=== PATIENT | female | born 1975 | race Caucasian/White ===

== ENCOUNTER → 2016-12-09 | Outpatient (CLI) | payer BC ==
[2016-12-09 11:09] LABS: Basophils % (A) 1 %; CH 30.6; CHCM 34.2; Eosinophils # (A) 0.2 k/uL (0-0.7); Eosinophils % (A) 3 %; HCT 41.7 % (34.0-46.0); HDW 2.48; HGB 14.1 gm/dL (11.4-16.0); Luc # (Auto) 0.13; Luc % (Auto) 2; Lymphocytes # (A) 1.8 k/uL (1.0-4.8); Lymphocytes % (A) 31 %; MCH 30.3 pg (25.0-35.0); MCHC 33.8 g/dL (31.0-37.0); MCV 89.7 fL (80.0-100.0); Mean Platelet Volume 6.2; Monocytes # (A) 0.3 k/uL (0-1.0); Monocytes % (A) 6 %; Neutrophils # (A) 3.3 k/uL (1.3-7.7); Neutrophils % (A) 57 %; RBC 4.64 m/uL (3.80-5.40); RDW 12.3 % (11.5-15.5); WBC 5.7 k/uL (3.8-10.6); WBC (Perox) 5.73
[2016-12-09 13:15] LABS: ALT 73 U/L (9-52); AST 40 U/L (14-36); Alkaline Phosphatase 72 U/L (38-126); Anion Gap 10 mmol/L; Blood Urea Nitrogen 14 mg/dL (7-17); Calcium 9.8 mg/dL (8.4-10.2); Carbon Dioxide 26 mmol/L (22-30); Chloride 105 mmol/L (98-107); Cholesterol 199 mg/dL (<200); Glucose 85 mg/dL (74-99); HDL Cholesterol 42 mg/dL (40-60); Non-African American GFR(MDRD) >60 (>60 ml/min/1.73 sqM); Potassium 4.7 mmol/L (3.5-5.1); Sodium 141 mmol/L (137-145); Total Bilirubin 0.3 mg/dL (0.2-1.3); Total Protein 7.1 g/dL (6.3-8.2); Triglycerides 285 mg/dL (<150)
[2016-12-09 13:32] LABS: Follicle Stimulating Hormone 5.6 mIU/mL
== END | disposition home or self-care (01) ==
LOC: LABWHC1 09:59
PROVIDERS: ATTEND Nurse Practitioner Adult Health
DX: Z00.00 Encounter for general adult medical examination without abnormal findings (principal); N92.0 Excessive and frequent menstruation with regular cycle
CPT/HCPCS: 36415; 80053; 80061; 82672; 83001; 83002; 84439; 84443; 85025

== ENCOUNTER → 2019-01-04 | Outpatient (CLI) | payer BC ==
[2019-01-04 12:28] LABS: Basophils # (A) 0.1 k/uL (0-0.2); Basophils % (A) 1 %; Eosinophils # (A) 0.1 k/uL (0-0.7); Eosinophils % (A) 2 %; HCT 45.2 % (34.0-46.0); HGB 14.6 gm/dL (11.4-16.0); Lymphocytes # (A) 1.9 k/uL (1.0-4.8); Lymphocytes % (A) 27 %; MCH 28.9 pg (25.0-35.0); MCHC 32.4 g/dL (31.0-37.0); MCV 89.3 fL (80.0-100.0); Mean Platelet Volume 6.3; Monocytes # (A) 0.4 k/uL (0-1.0); Monocytes % (A) 5 %; Neutrophils # (A) 4.7 k/uL (1.3-7.7); Neutrophils % (A) 64 %; Platelet Count 325 k/uL (150-450); RBC 5.06 m/uL (3.80-5.40); RDW 12.6 % (11.5-15.5); WBC 7.3 k/uL (3.8-10.6)
[2019-01-04 17:43] LABS: Albumin 4.4 g/dL (3.80-4.90); Albumin/Globulin Ratio 1.91 (1.60-3.17); Anion Gap 7.1 mmol/L (4.00-12.00); Calcium 9.6 mg/dL (8.7-10.3); Carbon Dioxide 23.9 mmol/L (21.6-31.8); Globulin 2.3 g/dL (1.6-3.3); LDL Cholesterol,Calculated 146.2 mg/dL (0.0-131.0); Potassium 4.5 mmol/L (3.5-5.5); Total Bilirubin 0.5 mg/dL (0.3-1.2); Total Protein 6.7 g/dL (6.2-8.2); VLDL Calculation 28.8 mg/dL (5.00-40.00)
== END ==
LOC: LABWHC1 11:08
PROVIDERS: ATTEND Family Medicine
DX: Z00.00 Encounter for general adult medical examination without abnormal findings (principal)
CPT/HCPCS: 36415; 80053; 80061; 84443; 85025

== ENCOUNTER → 2019-06-01 | Outpatient (CLI) | payer BC ==
--- NOTE | 2019-06-01 13:59 | MM ---
Reason for exam: screening (asymptomatic). Baseline mammogram. Physical Findings: Nurse did not find any significant physical abnormalities on exam. MG 3D Screening Mammo W/Cad Bilateral CC and MLO view(s) were taken. The breast tissue is heterogeneously dense. This may lower the sensitivity of mammography. Finding: There is a 20-25 mm indistinct oval mass in the upper outer quadrant, posterior position of the left breast. These results were verbally communicated with the patient and result sheet given to the patient on 06/01/19. ASSESSMENT: Incomplete: need additional imaging evaluation, BI-RAD 0 RECOMMENDATION: Ultrasound of the left breast.
--- NOTE | 2019-06-01 14:01 | USB ---
Reason for exam: additional evaluation requested from abnormal screening. Physical Findings: Breast exam preformed at baseline screening. US Breast Workup Limited LT Left limited breast ultrasound including focal area of concern, retroareolar and axilla demonstrates a 1.8 x 1.3 x 1.3cm oval, hypoechoic lesion at 2 o'clock for which a biopsy is recommended and a 2.3 x 1.8 x 1.1cm oval node at the axilla. These results were verbally communicated with the patient and result sheet given to the patient on 06/01/19. ASSESSMENT: Suspicious, BI-RAD 4 RECOMMENDATION: Ultrasound core biopsy of the left breast. Called Dr. Diaz with mammographic findings and has scheduled an appointment for the patient for 06/23/19 at 10:[address] Meza. Biopsy scheduled for 06/26/19 at 12:20. PRELIMINARY REPORT CALLED AND FAXED TO DR. MEZA ON 06/01/19.
== END | disposition home or self-care (01) ==
LOC: RADMAMWWP 11:03
PROVIDERS: ATTEND Family Medicine
DX: Z12.31 Encounter for screening mammogram for malignant neoplasm of breast (principal); R92.8 Other abnormal and inconclusive findings on diagnostic imaging of breast
CPT/HCPCS: 77063; 77067

== ENCOUNTER → 2019-06-23 | Outpatient (CLI) | payer BC ==
[2019-06-23 10:27] VITALS: BP 125/85; PULSE 82; RESP 18; TEMP 98; BMI 28.3
--- NOTE | 2019-06-23 10:51 | P.GSHP ---
History of Present Illness H&P Date: 06/23/19 Chief Complaint: Abnormal ultrasound left breast Lea is a 43 year old white female who is status post a bilateral mammogram on 06/01/2019. This revealed an indistinct oval mass in the upper outer quadrant of the left breast for which ultrasound was recommended. An ultrasound was performed on . This revealed a 1.8-1.3 cm hypoechoic lesion at 2:00 for which biopsy was recommended and a 2.3 x 1.8 cm oval node in the axilla. This was a routine screening mammogram. Is the first on the patient has had. She does not feel anything in her breast. She has no nipple discharge or skin changes of concern. She complains of discomfort in her breast bilaterally the week before her period. Her periods are regular. Her breasts become engorged prior to beginning menstruation but the discomfort goes away after she starts menstruation. She drinks approximately one cup of coffee per day. The patient does not smoke and she is not exposed to secondhand smoke. She does not eat chocolate regularly. Does not take any hormones. Family History: Maternal great-grandmother: Breast cancer at 80 maternal uncle: stomach Hormonal history: Menarche:13 , first at 18, breast fed: no periods regular, LMP May. BCP: in past foe < 1 year hormones: none Past surgical history: 1. 2 C-sections 2. Appendectomy Past medical history: one Social History: smoke: none drink: none drugs: none - Constitutional Constitutional: Reports sweats - EENT Eyes: denies blurred vision, denies pain Ears: deny: decreased hearing, tinnitus Ears, nose, mouth and throat: Denies headache, Denies sore throat - Breasts Breasts: bilateral: as per HPI - Cardiovascular Cardiovascular: Denies chest pain, Denies shortness of breath - Respiratory Respiratory: Denies cough, Denies 7 - Gastrointestinal Gastrointestinal: Denies abdominal pain, Denies diarrhea, Denies nausea, Denies vomiting - Genitourinary (Female) Genitourinary: Denies dysuria, Denies hematuria - Menstruation Menstruation: Reports period normal - Musculoskeletal Musculoskeletal: Denies myalgias - Integumentary Integumentary: Denies pruritus, Denies rash - Neurological Neurological: Denies numbness, Denies weakness - Psychiatric Psychiatric: Reports anxiety, Reports depression - Endocrine Comment: gain weight Endocrine: Reports fatigue, Reports weight change - Hematologic/Lymphatic Comment: none - Allergic/Immunologic Allergic/Immunologic: Reports seasonal allergies Past Medical History Past Medical History: No Reported History History of Any Multi-Drug Resistant Organisms: None Reported Past Surgical History: Appendectomy, Section Additional Past Surgical History / Comment(s): section x2 08/1993 and 06/2008; appendectomy approx: 1988; Past Anesthesia/Blood Transfusion Reactions: No Reported Reaction Past Psychological History: No Psychological Hx Reported Smoking Status: Never smoker Past Alcohol Use History: None Reported Past Drug Use History: None Reported Medications and Allergies Home Medications Medication Instructions Recorded Confirmed Type Desvenlafaxine Succinate [Pristiq] 50 mg PO QAM 06/12/19 06/23/19 History Allergies Allergy/AdvReac Type Severity Reaction Status Date / Time No Known Allergies Allergy Verified 06/23/19 10:23 Surgical - Exam Vital Signs Temp Pulse Resp BP Pulse Ox 98.0 F 82 18 125/85 97 06/23/19 10:24 06/23/19 10:24 06/23/19 10:24 06/23/19 10:24 06/23/19 10:24 BMI 28.3 - General well developed, well nourished, no distress - Eyes normal ocular movement - ENT no hearing loss, no congestion - Neck no masses, trachea midline - Respiratory normal respiratory effort, clear to auscultation - Cardiovascular Rhythm: regular Heart Sounds: normal: S1, S2 - Abdomen Abdomen: soft, non tender, no guarding, no rigid, no rebound - Integumentary normal turgor - Neurologic no disoriented, no combative - Musculoskeletal normal gait, normal posture - Psychiatric oriented to time, oriented to person, oriented to place, speech is normal, memory intact breast exam: Right breast: Dense breast multiple positional exam fibrocystic changes no domin ant masses or nodules of concern Right axilla: No adenopathy of concern Left breast: Dense breast multiple positional exam fibrocystic changes no dominant masses or nodules of concern Left axilla: No adenopathy of concern bra: 38 C Results Mammogram and ultrasound reports and radiographs reviewed Assessment and Plan Assessment: Impression: 1. Abnormal mammogram left breast 2. Abnormal ultrasound left breast and axilla 3. Fibrocystic breast changes 4. Family history of cancer 5. anxiety/depression Risks and benefits of the procedure were discussed with the patient. Additionally we discussed the fact that there is a axillary lymph node. Ultrasound has been reviewed with radiology Dr. Ashley and the node is 4 mm cortex therefore we are going to do biopsy of both the breast lesion and the lesion in the axilla. The patient understands that this is scheduled for the near future. Plan: 1. Ultrasound core biopsy left breast ultrasound abnormality 2. Ultrasound core biopsy left axillary lesion 3. Follow-up 1 week after biopsies Management medical conditions Cc: Dr. Ranjith Diaz
== END ==
LOC: WWCWWP 10:09
PROVIDERS: ATTEND Surgery
DX: Z53.9 Procedure and treatment not carried out, unspecified reason (principal)

== ENCOUNTER → 2019-06-26 | Day surgery (SDC) | payer BC ==
[2019-06-26 11:39] VITALS: RESP 16; BMI 28.3
[2019-06-26 13:21] VITALS: BP 138/88; PULSE 81; TEMP 97.7
--- NOTE | 2019-06-26 13:47 | USB ---
EXAMINATION TYPE: US biopsy breast VAD LT, MG diagnostic mammo LT wo CAD DATE OF EXAM: 06/26/2019 CLINICAL HISTORY: R92.8 ABN MAMMO. TECHNIQUE: Ultrasound guided core biopsy of left breast. COMPARISON: Screening mammogram dated 06/01/2019 and left breast ultrasound dated 06/01/2019. FINDINGS: The procedure of ultrasound guided core biopsy was explained to the patient. Benefits, alternatives, and risks were discussed. An informed consent was then obtained. Preprocedural timeout was performed. Preprocedural imaging demonstrated morphologically appearing lymph nodes without thickening. Decision to forego left axillary lymph node biopsy was made as these are likely reactive. Cortex measuring only 1.2 mm. The patient was placed in supine positioning for imaging and for the procedure. The overlying skin was prepped and draped in usual sterile fashion. 10 cc of 1% lidocaine was used as anesthetic into the skin and subcutaneous tissue up to the 2.3 cm area at the 2:00 position in the left breast. Under ultrasound guidance, a 12-gauge vacuum assisted biopsy gun device was used to obtain 5 core samples. Ribbon-shaped biopsy marker was left at the site of biopsy. Postprocedural mammogram demonstrates appropriate biopsy marker placement. This corresponds to the focal asymmetry in the left upper outer quadrant. This does however appear to be located approximately 1 cm caudal to the ovoid mass on mammogram. The patient tolerated the procedure well without any immediate complication. The patient was kept in the radiology department for short stay after the procedure and then discharged home in stable condition. IMPRESSION: Successful, uncomplicated ultrasound guided core biopsy of a 2.3 cm hypoechoic area at the 2:00 position in the left breast, full pathology results to follow. Pathology Results: Benign LEFT BREAST LESION, NEEDLE CORE BIOPSY: Benign fibroadipose breast parenchyma with fibrocystic changes. Suggest correlation with imaging studies. Recommendation Repeat procedure. Stereotactic biopsy, marker 1.5cm caudal post biopsy mammogram. MTDD
== END | disposition home or self-care (01) ==
LOC: RADUSWWP 11:10
PROVIDERS: ATTEND Surgery
DX: N60.12 Diffuse cystic mastopathy of left breast (principal)
CPT/HCPCS: 88305; 77065; 19083; A4648; J2001

== ENCOUNTER → 2019-07-06 | Outpatient (CLI) | payer BC ==
[2019-07-06 11:53] VITALS: BP 153/101; PULSE 80; RESP 18; TEMP 98.3; BMI 28.3
--- NOTE | 2019-07-06 11:55 | P.PN ---
Varun Tate is a 43 year old white female who is status post a bilateral mammogram on 06/01/2019. This revealed an indistinct oval mass in the upper outer quadrant of the left breast for which ultrasound was recommended. An ultrasound was performed on . This revealed a 1.8-1.3 cm hypoechoic lesion at 2:00 for which biopsy was recommended and a 2.3 x 1.8 cm oval node in the axilla. This was a routine screening mammogram. Is the first on the patient has had. She does not feel anything in her breast. She has no nipple discharge or skin changes of concern. She complains of discomfort in her breast bilaterally the week before her period. Her periods are regular. Her breasts become engorged prior to beginning menstruation but the discomfort goes away after she starts menstruation. She drinks approximately one cup of coffee per day. The patient does not smoke and she is not exposed to secondhand smoke. She does not eat chocolate regularly. Does not take any hormones. The patient underwent an ultrasound core biopsy and tender 719. Pathology revealed benign fibroadipose breast parenchyma with fibrocystic changes. There was some concern that the area did not correlate with the imaging studies. It is therefore been recommended that the patient undergo a stereotactic core biopsy of the area of concern noted on mammography. The patient has not had any complications following the procedure. She has no complaints related to her breast at this time. Family History: Maternal great-grandmother: Breast cancer at 80 maternal uncle: stomach Hormonal history: Menarche:13 , first at 18, breast fed: no periods regular, LMP May. BCP: in past foe < 1 year hormones: none Past surgical history: 1. 2 C-sections 2. Appendectomy Past medical history: one Social History: smoke: none drink: none drugs: none - Constitutional Constitutional: Reports sweats - EENT Eyes: denies blurred vision, denies pain Ears: deny: decreased hearing, tinnitus Ears, nose, mouth and throat: Denies headache, Denies sore throat - Breasts Breasts: bilateral: as per HPI - Cardiovascular Cardiovascular: Denies chest pain, Denies shortness of breath - Respiratory Respiratory: Denies cough, Denies 7 - Gastrointestinal Gastrointestinal: Denies abdominal pain, Denies diarrhea, Denies nausea, Denies vomiting - Genitourinary (Female) Genitourinary: Denies dysuria, Denies hematuria - Menstruation Menstruation: Reports period normal - Musculoskeletal Musculoskeletal: Denies myalgias - Integumentary Integumentary: Denies pruritus, Denies rash - Neurological Neurological: Denies numbness, Denies weakness - Psychiatric Psychiatric: Reports anxiety, Reports depression - Endocrine Comment: gain weight Endocrine: Reports fatigue, Reports weight change - Hematologic/Lymphatic Comment: none - Allergic/Immunologic Allergic/Immunologic: Reports seasonal allergies Past Medical History Past Medical History: No Reported History History of Any Multi-Drug Resistant Organisms: None Reported Past Surgical History: Appendectomy, Section Additional Past Surgical History / Comment(s): section x2 08/1993 and 06/2008; appendectomy approx: 1988; Past Anesthesia/Blood Transfusion Reactions: No Reported Reaction Past Psychological History: No Psychological Hx Reported Smoking Status: Never smoker Past Alcohol Use History: None Reported Past Drug Use History: None Reported Objective - Constitutional General appearance: Present: average body habitus - EENT Eyes: Present: EOMI ENT: Present: hearing grossly normal - Neck Neck: Present: normal ROM - Respiratory Respiratory: bilateral: CTA - Cardiovascular Rhythm: regular Heart sounds: normal: S1, S2 - Integumentary Integumentary: Present: normal turgor - Musculoskeletal Musculoskeletal: Present: gait normal - Psychiatric Psychiatric: Present: A&O x's 3, appropriate affect, intact judgment & insight - Additional findings Additional findings: Left breast biopsy site: No evidence of any infection or erythema no evidence of any hematoma Assessment and Plan Assessment: Impression: 1. Patient status post ultrasound core biopsy of left breast lesion felt to be discordant 2. Fibrocystic breast changes 3. Abnormal left breast mammogram 4. Family history of cancer 5. Anxiety/depression 6. The patient was going to have a left axillary ultrasound-guided core biopsy but nothing of concern was seen on exam on the day of the attempted biopsy on 7. No palpable axillary adenopathy was noted on prior physical exam The pathology findings have been discussed with the patient and her . The concern that this is discordant has also been discussed. The patient initially was going to have a biopsy of the lymph node as well however at the time of the procedure no lymph node of concern was identified therefore this area will be followed. Plan: 1. Stereotactic core biopsy left breast 2. Repeat ultrasound left axilla in 6 months to follow lymph node 3. Follow-up 1 week after core biopsy 4. Repeat left axillary exam following surgery to core biopsy Cc: Dr. Ranjith Diaz
== END | disposition home or self-care (01) ==
LOC: WWCWWP 10:55
PROVIDERS: ATTEND Surgery
DX: Z53.9 Procedure and treatment not carried out, unspecified reason (principal)

== ENCOUNTER → 2019-07-25 | Outpatient (CLI) | payer BC ==
--- NOTE | 2019-07-25 11:05 | US ---
EXAMINATION TYPE: US transvaginal DATE OF EXAM: 07/25/2019 COMPARISON: NONE CLINICAL HISTORY: N92.3 INTERMENSTRUAL SPOTTING. Patient states having spotting between periods. No significant pain. Tubal ligation. C-sections x 2. TECHNIQUE: Transvaginal (TV). Date of LMP: 07/14/2019, EXAM MEASUREMENTS: Uterus: 11.2 x 6.2 x 6.0 cm Endometrial Stripe: 1.6 cm 1. Uterus: Anteverted Heterogenous. Hypoechoic lesions seen, largest measured mid posterior = 1.2 x 1.2 x 1.0 cm 2. Endometrium: Appears thickened and heterogenous. Vascular echogenic lesion = 0.8 x 0.6 x 0.4 cm 3. Right Ovary: Obscured by overlying bowel gas 4. Left Ovary: Obscured by overlying bowel gas 5. Bilateral Adnexa: wnl 6. Posterior cul-de-sac: no free fluid Cervix- fluid seen within cervical canal. Nabothian cysts. Heterogeneous prominent uterus with few scattered small hypoechoic lesions. Poor visualization of end ometrium which is suspected thickened and vascular. Consider dilatation and curettage to further eval uate. No free fluid in pelvic cul-de-sac. Neither ovary clearly identified. Suspect roughly 1 cm intr amural fibroid posterior myometrium. IMPRESSION: Heterogeneous probable fibroid uterus. Poorly visualized but suspected thickened hypervas cular endometrium. Consider dilatation and curettage.
== END | disposition home or self-care (01) ==
LOC: RADUSWWP 10:16
PROVIDERS: ATTEND Obstetrics & Gynecology
DX: N92.3 Ovulation bleeding (principal)
CPT/HCPCS: 76830

== ENCOUNTER → 2019-08-23 | Outpatient (CLI) | payer BC ==
[2019-08-23 12:25] LABS: Basophils % (A) 0 %; Eosinophils % (A) 0 %; HCT 40.9 % (34.0-46.0); HGB 13.8 gm/dL (11.4-16.0); Lymphocytes # (A) 1.8 k/uL (1.0-4.8); Lymphocytes % (A) 27 %; MCHC 33.8 g/dL (31.0-37.0); MCV 88.8 fL (80.0-100.0); Mean Platelet Volume 6.3; Monocytes # (A) 0.5 k/uL (0-1.0); Monocytes % (A) 7 %; Neutrophils # (A) 4.3 k/uL (1.3-7.7); Neutrophils % (A) 64 %; Platelet Count 315 k/uL (150-450); RDW 12.5 % (11.5-15.5); WBC 6.7 k/uL (3.8-10.6)
== END | disposition home or self-care (01) ==
LOC: LABPAT 11:35
PROVIDERS: ATTEND Obstetrics & Gynecology
DX: Z01.812 Encounter for preprocedural laboratory examination (principal)
CPT/HCPCS: 85025

== ENCOUNTER 2019-09-01 05:57 | Day surgery (SDC) | payer BC ==
[2019-08-30 16:13] VITALS: BMI 29.8
--- NOTE | 2019-08-31 07:57 | P.HPOB ---
History of Present Illness H&P Date: 08/31/19 Chief Complaint: Dysfunctional uterine bleeding. This patient is a pleasant 44 yr female who presented with complaints of bleeding between her menses. Ultrasound showed a vascular echogenic lesion about 1 cm of the endometrium most likely consistent with an endometrial polyp. Patient is now presenting for hysteroscopy and D&C for further evaluation. Review of Systems Menstruation: Reports as per HPI Past Medical History Past Medical History: No Reported History Additional Past Medical History / Comment(s): heavy, frequent periods History of Any Multi-Drug Resistant Organisms: None Reported Past Surgical History: Appendectomy, Section Additional Past Surgical History / Comment(s): section x2 08/1993 and 06/2008; appendectomy approx: 1988; Past Anesthesia/Blood Transfusion Reactions: No Reported Reaction Past Psychological History: No Psychological Hx Reported Smoking Status: Never smoker Past Alcohol Use History: None Reported Past Drug Use History: None Reported - Past Family History Mother Family Medical History: Deep Vein Thrombosis (DVT) Medications and Allergies Home Medications Medication Instructions Recorded Confirmed Type Desvenlafaxine Succinate [Pristiq] 50 mg PO HS 06/12/19 08/30/19 History Allergies Allergy/AdvReac Type Severity Reaction Status Date / Time No Known Allergies Allergy Verified 08/30/19 16:13 Exam Intake and Output 08/30/19 08/31/19 08/31/19 22:59 06:59 14:59 Other: Weight 71.668 kg - OBG Physical Exam Abdomen: bowel sounds normal, no diffuse tenderness, no bruit present, no guarding noted, no hepatomegaly, no splenomegaly, no mass Vulva: both: normal Vagina: normal moisture, no discharge Cervix: no lesion, no discharge Uterus: normal size, normal contour Results Pelvic ultrasound on 07/25 showed a ~1cm vascular lesion of the endometrium. Assessment and Plan Assessment: This is a pleasant 44 yr female with dysfunctional uterine bleeding and ultrasound most consistent with an endometrial polyp. Plan is hysteroscopy and D&C. Lea and I have discussed this surgery and risks: infection, bleeding, possible uterine perforation. All of her questions were answered and a written consent obtained. (1) Dysfunctional uterine bleeding Status: Chronic Code(s): N93.8 - OTHER SPECIFIED ABNORMAL UTERINE AND VAGINAL BLEEDING SNOMED Code(s): [id number]
[~2019-09-01 05:57] MED LIST: Pre Op ABX Message 1 EACH MISC MISCELLANE ONE
[2019-09-01] MEDS ORDERED: LIDOCAINE 1% 20 ML VIAL (10MG/ML) FOR IV START INTRADERMA PRN (06:24)
[2019-09-01] MEDS ORDERED: KETOROLAC 30 MG/ML 1 ML VIAL IVP SCH (06:24)
[2019-09-01] MEDS ORDERED: ONDANSETRON 4 MG/2 ML VIAL IVP ONE (06:24)
[2019-09-01] MEDS ORDERED: METOCLOPRAMIDE 5 MG/ML 2 ML VIAL IVP PRN (06:24)
[2019-09-01] MEDS ORDERED: HYDROmorphone 0.5 MG/0.5 ML SYRINGE IVP PRN (06:24)
[2019-09-01] MEDS ORDERED: LACTATED RINGERS 1,000 ML IV SCH (06:24)
[2019-09-01] MEDS ORDERED: DEXAMETHASONE SOD PHOSPHATE 10 MG/ML 1 ML VIAL IV ONE (06:24)
[2019-09-01] MEDS ORDERED: MIDAZOLAM 2 MG/2 ML VIAL ONE (06:42)
[2019-09-01] MEDS ORDERED: PROPOFOL 10 MG/ML 20 ML VIAL IV ONE (06:42)
[2019-09-01] MEDS ORDERED: KETOROLAC 30 MG/ML 1 ML VIAL ONE (06:42)
[2019-09-01] MEDS ORDERED: fentaNYL (PF) 50 MCG/ML 2 ML AMP ONE (06:42)
[2019-09-01] MEDS ORDERED: LIDOCAINE 1% INJ 10MG/ML (20 ML MDV) ONE (06:42)
[2019-09-01] MEDS ORDERED: SUCCINYLCHOLINE CHLORIDE 100 MG/5 ML SYR IV ONE (06:42)
[2019-09-01 07:27] VITALS: TEMP 98.2
--- NOTE | 2019-09-01 07:27 | P.OP ---
Date of Procedure: 09/01/19 Preoperative Diagnosis: Dysfunctional uterine bleeding and endometrial thickening Postoperative Diagnosis: Same Procedure(s) Performed: #1: hysteroscopy. #2: Dilation and curettage Anesthesia: AUTUMN Surgeon: Alfredo Broussard Estimated Blood Loss (ml): 10 Urine output (ml): 10 Pathology: other (uterine curettings) Condition: stable Disposition: PACU Indications for Procedure: Please see dictated H&P for intimate details of this patient's admission. In brief summary this is a pleasant 44-year-old multiparous patient who's had dysfunctional uterine bleeding and ultrasound showed endometrial thickening consistent with probable endometrial polyp. Patient now presents for hysteroscopy D&C for further evaluation and treatment. Patient understands this surgery and risks including risks of infection, bleeding, possible uterine perforation. All the patient's questions are answered written consent is obtained. Operative Findings: This patient had several benign appearing endometrial polyps in the lower uterine segment. Uterus did sound to 11 cm. Description of Procedure: this patient is taken to the operating room where she is laid in the supine position. She subsequently undergoes general endotracheal anesthesia without incident. An adequate level of anesthesia she's placed in dorsal lithotomy position. She has a vaginal perineal prep and drape. Examination under anesthesia shows a mid position uterus slightly enlarged. Weighted speculum was placed in the posterior vagina. The anterior lip of the cervix is grabbed with an Allis clamp. I did drain the bladder for 10 mL of clear urine. Uterus is gently sounded to 11 centimeters. Gentle dilation is done of the endocervix to allow the hysteroscope into the uterine cavity. Using saline solution, hysteroscopy is performed. The lower uterine segment has multiple small polyps. The upper part of the uterus appears clear. There is no other gross lesions. This completed the hysteroscope was removed. The cervix is dilated more to allow the polyp forceps into the uterine cavity. Multiple passes are made and small polyps removed. I did do a thorough 4 quadrant, vigorous curettage. All this tissue is sent off to pathology. The Allis clamp was removed and the weighted speculum removed. All counts are correct 3. There are no complications. Patient is then awakened from anesthesia and taken recovery room satisfactory condition.
[2019-09-01 08:07] VITALS: RESP 16
[2019-09-01 08:29] VITALS: BP 133/89; PULSE 81
== END 2019-09-01 09:07 | disposition home or self-care (01) ==
LOC: OR 05:57
PROVIDERS: ATTEND Obstetrics & Gynecology
DX: N93.8 Other specified abnormal uterine and vaginal bleeding (principal); N84.0 Polyp of corpus uteri; K21.9 Gastro-esophageal reflux disease without esophagitis; Z90.89 Acquired absence of other organs; Z98.891 History of uterine scar from previous surgery; Z79.899 Other long term (current) drug therapy
CPT/HCPCS: 58558; 81025; 88305; J2250; J1100; J2405; J2001; J3010; J1885; J0330; J2704

== ENCOUNTER → 2021-03-13 | Outpatient (CLI) | payer BC ==
[2021-03-13 18:54] LABS: Basophils # (A) 0.01 X 10*3/uL (0.00-0.10); Basophils % (A) 0.2 %; Eosinophils # (A) 0 X 10*3/uL (0.04-0.35); Eosinophils % (A) 0 %; HCT 41.8 % (37.2-46.3); HGB 13.7 g/dL (12.0-15.0); Lymphocytes # (A) 1.77 X 10*3/uL (0.90-5.00); Lymphocytes % (A) 30.8 %; MCH 29.5 pg (27.0-32.0); MCHC 32.8 g/dL (32.0-37.0); MCV 90.1 fL (80.0-97.0); Mean Platelet Volume 9.7 fL (9.5-12.2); Monocytes # (A) 0.45 X 10*3/uL (0.20-1.00); Monocytes % (A) 7.8 %; Neutrophils # (A) 3.51 X 10*3/uL (1.80-7.70); Platelet Count 318 X 10*3/uL (140-440); RBC 4.64 X 10*6/uL (4.10-5.20); RDW 12.3 % (11.5-14.5); WBC 5.75 X 10*3/uL (4.50-10.00)
[2021-03-13 20:19] LABS: African American GFR (CKD) 102.5 (60.0-200.0); Albumin 4.3 g/dL (3.80-4.90); Albumin/Globulin Ratio 1.65 (1.60-3.17); Anion Gap 6.7 mmol/L (4.00-12.00); BUN/Creat Ratio 13.75 Ratio (12.00-20.00); Calcium 9.2 mg/dL (8.7-10.3); Carbon Dioxide 27.3 mmol/L (21.6-31.8); Chol/HDL Ratio 5.36; Globulin 2.6 g/dL (1.6-3.3); LDL Cholesterol,Calculated 113.2 mg/dL (0.0-131.0); Non-African American GFR(CKD) 88.4 (60.0-200.0); Potassium 4.6 mmol/L (3.5-5.5); Total Bilirubin 0.3 mg/dL (0.3-1.2); Total Protein 6.9 g/dL (6.2-8.2); VLDL Calculation 56.8 mg/dL (5.00-40.00)
[2021-03-13 22:21] LABS: Hemoglobin A1C 5.4 % (4.0-6.0)
[2021-03-14 10:11] LABS: APTT 36 Sec(s) (<43); Dilute Russell Viper Venom 40 Sec(s) (<44)
[2021-03-14 10:13] LABS: Free Protein S Antigen 126 % (50 - 147)
== END | disposition home or self-care (01) ==
LOC: LABWHC1 11:34
PROVIDERS: ATTEND Family Medicine
DX: Z00.00 Encounter for general adult medical examination without abnormal findings (principal); R04.0 Epistaxis; Z20.822 Contact with and (suspected) exposure to COVID-19; Z83.2 Family history of diseases of the blood and blood-forming organs and certain disorders involving the immune mechanism
CPT/HCPCS: 36415; 80053; 80061; 81240; 81241; 81291; 83036; 83090; 84443; 85025; 85303; 85306; 85613; 85730; 86769